=== PATIENT | female | born 1950 | race Caucasian/White ===

== ENCOUNTER → 2021-03-27 | Outpatient (CLI) | payer OTHER ==
[~2021-03-27] MED LIST: BACTRIM DS TAB1 EACH PO; BENADRYL25 MG PO; LISINOPRIL5 MG PO; METFORMIN PO; NEXIUM40 MG PO; NORFLEX100 MG PO; PEPCID AC20 M1 PO; PERCOCET 5-3251 EACH PO; PROTONIX40 MG PO; TOPAMAX100 MG PO; WELLBUTRIN SR200 MG PO; ZOFRAN ODT4 MG PO; ZYRTEC 10 MG TA10 M1 PO
== END ==
LOC: HYPER 13:19
PROVIDERS: ATTEND Emergency Medicine
DX: S51.802A Unspecified open wound of left forearm, initial encounter (principal); L03.114 Cellulitis of left upper limb; R26.89 Other abnormalities of gait and mobility; Z96.652 Presence of left artificial knee joint; Z90.49 Acquired absence of other specified parts of digestive tract; W54.8XXA Other contact with dog, initial encounter; Y93.89 Activity, other specified; Y92.89 Other specified places as the place of occurrence of the external cause; Y99.8 Other external cause status

== ENCOUNTER → 2021-04-03 | Outpatient (CLI) | payer OTHER | LOC: HYPER 12:19 | PROVIDERS: ATTEND Emergency Medicine | DX: S51.852D Open bite of left forearm, subsequent encounter (principal); L03.114 Cellulitis of left upper limb; R26.89 Other abnormalities of gait and mobility; Z96.652 Presence of left artificial knee joint; W54.8XXD Other contact with dog, subsequent encounter ==